=== PATIENT | female | born 1960 | race Hispanic/Latino ===

== ENCOUNTER 2023-01-10 10:41 | Emergency (ER) | payer OTHER ==
[~2023-01-10] VITALS: Ht 165.1 cm; Wt 126.0 kg
[~2023-01-10 10:41] MED LIST: ALL DAY10 MG PO; CORRECTOL100 MG PO; FE GLUCONATE325 MG PO; LEVOTHYROXIN125 MC1 PO; LORTAB 10-325 M1 TAB PO; MELOXICAM7.5 MG PO; OMEPRAZOLE20 M2 PO; PERCOCET1 TA2 PO; PROAIR HFA IN; [UNRECOGNIZED DRUG - OTHER] EX
[2023-01-10] MEDS ORDERED: ASPIRIN 81 LOW81 MG PO (11:48)
[2023-01-10] MEDS ORDERED: LIPITOR20 MG PO (11:49)
[2023-01-10] MEDS ORDERED: ALL DAY ALLG10 MG PO (11:49)
[2023-01-10] MEDS ORDERED: FAMOTIDINE20 M1 PO (11:49)
[2023-01-10] MEDS ORDERED: ALLERGY RE50 MCG/ACT NAB (11:51)
[2023-01-10] MEDS ORDERED: LISINOPRIL5 MG PO (11:55)
[2023-01-10] MEDS ORDERED: METFORMIN500 M2 PO (11:56)
[2023-01-10 11:59] LABS: BASO% 1.2 % (0-3); EOS% 0.6 % (0-8); HEMATOCRIT 44.2 % (37.0-47.0); HEMOGLOBIN 14.1 g/dl (12.0-16.0); IMMATURE GRANULOCYTES 0.3 % (0.0-5.0); LYMPH% 31.3 % (15-41); MEAN CELL VOLUME 88.9 fL CALC (80.0-100.0); MEAN CORPUSCULAR HGB 28.4 pG CALC (26.0-32.0); MEAN CORPUSCULAR HGB CONC 31.9 g/dL CAL (32.0-36.0); MONO% 14.2 % (2-13); NEUT# 1.78 thou/uL (2.00-7.15); NEUT% 52.4 % (42-76); RED BLOOD COUNT 4.97 mill/uL (4.20-5.60); RED CELL DISTRI WIDTH 14.3 % (11.5-15.5)
[2023-01-10 12:30] LABS: ALBUMIN 4.1 g/dL (3.2-5.0); ANION GAP 12 (6-22 (CALC)); BILIRUBIN, TOTAL 0.9 mg/dL (0.02-1.3); BUN 10 mg/dL (7-17); BUN/CREATININE RATIO 13 (12-20 (CALC)); CARBON DIOXIDE 25 mmol/l (22-30); CHLORIDE 106 mmol/l (95-108); CREATININE 0.8 mg/dL (0.5-1.0); GFR FOR AFR.AMER. > 60 ML/MIN (>=60 (CALC)); GFR OTHER RACES > 60 ML/MIN (>=60 (CALC)); LIPASE 236 u/l (23-300); SGOT/AST 187 u/l (14-36); SODIUM 139 mmol/l (137-146); TOTAL PROTEIN 7.7 g/dL (6.3-8.2)
[2023-01-10 12:32] LABS: URINE BLOOD DIPSTICK Negative (NEGATIVE); URINE GLUCOSE - DIPSTICK Negative (NEGATIVE); URINE KETONE 15 mg/dL (NEGATIVE); URINE LEUK ESTERASE Negative (NEGATIVE); URINE NITRITE - DIPSTICK Negative (Negative); URINE PH 5.5 (4.5-8.0); URINE PROTEIN - DIPSTICK 100 mg/dL (NEG-TRACE)
[2023-01-10 12:34] LABS: URINE COLOR Dark yellow
[2023-01-10 12:36] LABS: ALKALINE PHOSPHATASE 84 u/l (38-126)
[2023-01-10 13:04] LABS: URINE SQUAMOUS EPITHELIAL CELL FEW EPI/hpf (0-FEW)
[2023-01-10] MEDS ORDERED: CHERATUSSIN PO (16:43)
[2023-01-10] MEDS ORDERED: NEBULIZER PO (16:43)
[2023-01-10] MEDS ORDERED: LOSARTAN POTASS50 MG PO (16:43)
[2023-01-10] MEDS ORDERED: NEBULIZER KIT/TUBING PO (16:43)
[2023-01-10] MEDS ORDERED: IPRATROPIU0.5 MG/3 M IN (16:43)
[2023-01-10 16:52] VITALS: BP 115/78
== END 2023-01-10 16:53 | disposition home or self-care (01) ==
LOC: ED 10:41
PROVIDERS: Family Medicine
DX: R05.9 Cough, unspecified (principal); I10 Essential (primary) hypertension; E03.9 Hypothyroidism, unspecified; E11.9 Type 2 diabetes mellitus without complications; E66.01 Morbid (severe) obesity due to excess calories; Z79.4 Long term (current) use of insulin; Z20.822 Contact with and (suspected) exposure to COVID-19
CPT/HCPCS: Q9967